=== PATIENT | female | born 1965 | race Asian ===

== ENCOUNTER → 2018-10-23 14:45 | Outpatient (CLI) | payer OTHER, SELFPAY ==
[2018-10-23 19:06] LABS: Estimated Glomerular Filt Rate > 60.0 mL/min (>60)
== END ==
PROVIDERS: Visit Provider Physician Assistant
DX: R10.11 Right upper quadrant pain (principal)
CPT/HCPCS: 36415; 82565

== ENCOUNTER → 2020-04-21 14:22 | Outpatient (CLI) | payer OTHER, SELFPAY ==
[2020-04-21] MEDS: COVID-19 VACC(MODERNA-1)/PF 100 MCG/0.5 ML VIAL IM (14:29)
== END ==
PROVIDERS: PCP Physician Assistant Medical; Visit Provider Internal Medicine
DX: Z23 Encounter for immunization (principal)
CPT/HCPCS: 0011A; 91301

== ENCOUNTER → 2020-05-18 14:21 | Outpatient (CLI) | payer OTHER, SELFPAY ==
[2020-05-18] MEDS: COVID-19 VACC #2, MRNA(MOD) 100 MCG/0.5 ML VIAL IM (14:25)
== END ==
PROVIDERS: PCP Physician Assistant Medical; Visit Provider Internal Medicine
DX: Z23 Encounter for immunization (principal)
CPT/HCPCS: 0012A; 91301

== ENCOUNTER → 2021-03-22 13:18 | Outpatient (CLI) | payer OTHER, SELFPAY ==
--- NOTE | 2021-03-22 | DI.MRI.S_ITS ---
PROCEDURE: MR WRIST LT W CON INDICATIONS: Other specified sprain of left wrist, initial enco TECHNIQUE: After the administration of 3-4 mL of dilute intra-articular Gadolinium contrast into the radiocarpal compartment, coronal T1 spin echo with fat saturation and T2 fast spin echo with fat saturation, axial T1 spin echo and T2 fast spin echo with fat saturation, sagittal T1 spin echo with and without fat saturation through the wrist. COMPARISON: [facility] Winifred, CR, XR WRIST 3+ VIEWS LEFT, 01/31/2021, 13:40. FINDINGS: Image quality: Some images are degraded by motion artifact. Bones and cartilage: The carpal bones are normally aligned. No bone marrow contusions or evidence for avascular necrosis. Cortical irregularity of the mid scaphoid pole, which may reflect prior injury and subsequent fibrocystic change. Overlying cartilage surfaces are centrally maintained. Carpal ligaments: The scapholunate and lunotriquetral ligaments appear intact, without gadolinium extravasation into the mid-carpal compartment. The interosseous intercarpal ligaments are intact. On sagittal images, the pisohamate ligament is intact. Triangular fibrocartilage complex: T2 hyperintense signal within the peripheral aspect of the TFCC, compatible with tear. Gadolinium extravasation into the distal radioulnar joint. The extensor carpi ulnaris tendon is normal in location and morphology. Tendons and soft tissues: The carpal tunnel structures appear normal, including the median nerve. The ulnar nerve is not well delineated due to contrast extravasation. Fluid signal surrounds the extensor carpi radialis tendons, compatible with tenosynovitis. Fluid signal also surrounds the extensor pollicis longus, compatible with tenosynovitis. IMPRESSION: 1. Peripheral tear of the TFCC with contrast extravasation into the distal radioulnar articulation. 2. Cortical irregularity of the mid pole with scaphoid, which may reflect a remote traumatic injury. 3. Fluid surrounding the extensor carpi radialis tendons as well as the extensor pollicis longus tendon, compatible with tenosynovitis. Dictated by: Kavin Tenorio M.D. on 03/22/2021 at 15:39 Approved by: Kavin Tenorio M.D. on 03/22/2021 at 15:57
--- NOTE | 2021-03-22 | DI.RAD.S_ITS ---
PROCEDURE: FL WRIST INJECTION MR/CT LT INDICATIONS: Other specified sprain of left wrist, initial enco COMPARISON: Non. TECHNIQUE: After informed consent had been obtained, the wrist was examined fluoroscopically, and a site chosen for injection of the radiocarpal compartment from a dorsal approach. Skin was prepped and draped in a sterile fashion and 1% lidocaine infiltrated from the skin down to the articular surface. A hypodermic needle was then introduced into the articular space and a modest amount of contrast medium was instilled confirming intra-articular needle tip placement. This was followed by approximately 4 mL of a dilute gadolinium solution. Needle was removed and dressing was applied. The patient experienced no complications throughout the procedure and left the fluoroscopic suite in no apparent distress. FINDINGS: A single fluoroscopic spot image demonstrates intra-articular location to injected iodinated contrast. IMPRESSION: Successful fluoroscopic-guided administration of dilute Gadolinium solution for wrist MR arthrogram. Dictated by: Sharda Murdock MD, PhD on 03/22/2021 at 15:24 Approved by: Sharda Murdock MD, PhD on 03/22/2021 at 15:25
== END ==
PROVIDERS: PCP Physician Assistant Medical; Referring Provider Orthopaedic Surgery; Visit Provider Orthopaedic Surgery
DX: S63.592A Other specified sprain of left wrist, initial encounter (principal); X58.XXXA Exposure to other specified factors, initial encounter
CPT/HCPCS: 20605; 73222; 76000

== ENCOUNTER → 2021-11-28 11:41 | Outpatient (CLI) | payer OTHER, SELFPAY ==
[2021-11-28 13:38] LABS: Add Manual Diff / Slide Review NO; Basophils Absolute Auto 100 /uL (0-100); Eosinophils Absolute Auto 200 /uL (0-450); Eosinophils Percent Auto 2.8 % (2-4); Hematocrit 40.2 % (36-46); Hemoglobin 13.8 g/dL (12.0-16.0); Lymphocytes Absolute Auto 2400 /uL (1100-4500); Lymphocytes Percent Auto 38.7 % (25-40); Mean Corpuscular HGB Conc 34.2 % (30-36); Mean Corpuscular Hemoglobin 29.5 PG (26-34); Mean Corpuscular Volume 86.2 fL (80-100); Monocytes Absolute Auto 500 /uL (0-900); Monocytes Percent Auto 7.7 % (3-14); Neutrophils Absolute Auto 3000 /uL (1500-7000); Neutrophils Percent Auto 49.8 % (50-75); Platelet Count 273 X10^3/uL (150-400); Red Blood Cell Count 4.66 X10^6/uL (4.0-5.2); Red Cell Distribution Width 13.2 % (11.6-14.8); White Blood Cell Count 6.1 X10^3/uL (4.5-11.0)
[2021-11-28 14:13] LABS: Alanine Aminotransferase 34 IU/L (<35); Albumin 4.7 g/dL (3.5-5.0); Albumin Globulin Ratio 1.3 (1.0-2.8); Alkaline Phosphatase 70 U/L (38-126); Aspartate Aminotransferase 41 IU/L (14-36); Bilirubin Total 0.5 mg/dL (0.2-1.3); Bilirubin Unconjugated 0.4 mg/dL (0.0-1.1); Globulin 3.5 g/dL (1.7-4.1); HEMOLYSIS < 15 (0-50); Total Protein 8.2 g/dL (6.3-8.2)
== END ==
PROVIDERS: PCP Physician Assistant Medical; Referring Provider Internal Medicine Gastroenterology; Visit Provider Internal Medicine Gastroenterology
DX: R10.9 Unspecified abdominal pain (principal)
CPT/HCPCS: 36415; 80076; 85025

== ENCOUNTER → 2021-12-25 08:35 | Outpatient (CLI) | payer OTHER, SELFPAY ==
--- NOTE | 2021-12-25 | DI.NM.S_ITS ---
PROCEDURE: NM HIDA WITH CCK PHARMACEUTICAL: 5.4 mCi Tc-99m mebrofenin IV; 1.5 mcg CCK IV. INDICATIONS: Unspecified abdominal pain TECHNIQUE: Following intravenous administration of Tc-99m mebrofenin, sequential anterior abdominal images were obtained. To evaluate the contractile response of the gallbladder in response to Cholecystokinin (CCK), sincalide (0.02 ?g/kg) was administered by slow intravenous infusion approximately 60 minutes after the administration of the radiopharmaceutical. Sequential imaging was continued for 30 minutes after the start of CCK infusion. Gallbladder ejection fraction was calculated. COMPARISON: None. FINDINGS: Biliary scan: There is normal tracer uptake and excretion by the liver. There is normal visualization of the intrahepatic ducts, common bile duct, and gallbladder. There is normal tracer transit into the duodenum. CCK stimulation: There is normal contractile response of the gallbladder to CCK infusion. The calculated gallbladder ejection fraction is 92% ; normal values are above 35%. IMPRESSION: Patent cystic duct. Normal gallbladder ejection fraction. Dictated by: Ferdinand Mulligan M.D. on 12/25/2021 at 11:18 Approved by: Ferdinand Mulligan M.D. on 12/25/2021 at 11:21
== END ==
PROVIDERS: PCP Physician Assistant Medical; Referring Provider Internal Medicine Gastroenterology; Visit Provider Internal Medicine Gastroenterology
DX: R10.9 Unspecified abdominal pain (principal)
CPT/HCPCS: 78227; A9537; J2805

== ENCOUNTER → 2023-10-01 14:33 | Outpatient (CLI) | payer OTHER, SELFPAY ==
--- NOTE | 2023-10-01 14:36 | DI.ECHO.S_ITS ---
[facility]+ [facility] : : [address] : : [place] : : [id number] : : Phone: [phone] Echocardiogram Report + + :Name: ERICK MOLINA Study Date: 10/01/2023 Height: 61 in : :[facility] ReadingLocation: Weight: 164 lb : : Gender: Female BSA: 1.7 m2 : :: 1965 Age: 58 yrs BP: 134/76 mmHg: :Reason For Study: MURMUR : :Ordering Physician: SHELLY CORRAL Performed By: Unruly Aguilar : :Referring: SHELLY CORRAL : + + Interpretation Summary 1. The left ventricular contractility is normal. Estimated ejection fraction is greater than 55% with no segmental wall motion abnormalities. Impaired relaxation noted. No LVH present. 2. The right ventricular contractility is normal. 3. There is mild left atrial enlargement. All other cardiac chambers are of normal size. 4. There is mild aortic valvular stenosis noted. Dimensionless index is 0.50. Mean gradient is 8.3 mmHg. 5. No other significant valvular abnormalities noted. 6. No obvious intracardiac shunts present. 7. No obvious intracardiac masses or thrombi appreciated. 8. No hemodynamically significant pericardial effusion noted. Conclusion: Normal biventricular systolic function with mild aortic valvular stenosis. Procedure: A two-dimensional transthoracic echocardiogram with color flow and Doppler was performed. The study quality was technically adequate. There is no prior echocardiogram noted for this patient. The patient was in sinus rhythm with heart rates between 67-82 bpm during the exam. Left Ventricle: The left ventricle is normal in size and wall thickness. The ejection fraction is estimated to be 55-60%. Right Ventricle: The right ventricle is normal size. The right ventricular systolic function is normal. Atria: The left atrium is mildly dilated. Right atrial size is normal. The interatrial septum grossly appears intact with no obvious evidence for an atrial septal defect. Mitral Valve: The mitral valve is normal. There is no mitral valve stenosis. There is trace mitral regurgitation. Aortic Valve: The aortic valve is trileaflet. There is mild aortic stenosis. The peak aortic velocity is 1.95 m/sec. The aortic valve mean gradient is 8.3 mmHg. The calculated aortic valve area is 1.7 cm2. No aortic regurgitation is present. Tricuspid Valve: The tricuspid valve is normal. There is no tricuspid stenosis. No tricuspid regurgitation. Pulmonic Valve: The pulmonic valve is not well visualized. There is no pulmonic valvular stenosis. There is no pulmonic valvular regurgitation. Great Vessels: The aortic root is normal size. The dimensions of the ascending aorta are normal. The IVC is of normal diameter and collapses greater than 50% with a sniff. This suggests a low right atrial pressure of 3 mm Hg. Pericardium/ Pleura There is no pericardial effusion. There is no pleural effusion. MMode/2D Measurements & Calculations LVIDd: 4.7 cm LVOT diam: 2.1 cm LVIDs: 3.4 cm Ao root diam: 3.0 cm FS: 26.7 % asc Aorta Diam: 2.9 cm IVSd: 0.91 cm Ao Arch Diam (Prox Trans): 2.7 cm LVPWd: 0.83 cm LV sykes. diameter/BSA (cm/m^2): 2.7 LV sys. diameter/BSA (cm/m^2): 2.0 LA A2 area: 16.9 cm2 RA long axis: 4.6 cm LA A4 area: 18.7 cm2 RA area: 14.6 cm2 LA length (vol): 5.2 cm RA vol: 39.3 ml LA vol: 51.8 ml RA : 22.6 ml/m2 LA vol index: 29.8 ml/m2 IVC diam: 1.3 cm RVD1 (basal): 3.5 cm RVD2 (mid): 2.7 cm TAPSE: 2.2 cm Doppler Measurements & Calculations Ao V2 max: 195.0 cm/sec LVOT Max Dean: 90.6 cm/sec Ao V2 mean: 135.0 cm/sec LV V1 max P.3 mmHg Ao max P.3 mmHg LV V1 VTI: 21.8 cm Ao mean P.3 mmHg DANICA(I,D): 1.7 cm2 Ao V2 VTI: 42.9 cm DANICA(V,D): 1.6 cm2 sev ratio: 0.51 DANICA indexed to BSA (cm^2/m^2): 1.00 MV E max dean: 80.5 cm/sec PA V2 max: 104.1 cm/sec MV A max dean: 90.7 cm/sec PA V2 mean: 79.0 cm/sec MV E/A: 0.89 PA mean P.7 mmHg Med Peak E' Dean: 8.2 cm/sec PA pr(Accel): 36.2 mmHg E/E' med: 9.9 Lat Peak E' Dean: 8.4 cm/sec E/E' lat: 9.5 E/e' average: 9.7 MV dec time: 0.20 sec SV(LVOT): 74.1 ml Reading Physician:
== END ==
PROVIDERS: PCP Physician Assistant Medical; Referring Provider Internal Medicine; Visit Provider Internal Medicine
DX: I35.0 Nonrheumatic aortic (valve) stenosis (principal); R01.1 Cardiac murmur, unspecified
CPT/HCPCS: 93306